=== PATIENT | male | born 1980 | race American Indian/Alaskan Native ===

== ENCOUNTER 2018-12-26 12:06 | Emergency (ER) | payer BC ==
[2018-12-26 12:14] VITALS: BP 162/78
--- NOTE | 2018-12-26 12:14 | Emergency Department Report ---
Blank Doc - Documentation Documentation: This is a 38-year-old male that presents with headache s/p injury in [place]. This initial assessment/diagnostic orders/clinical plan/treatment(s) is/are subject to change based on patient's health status, clinical progression and re- assessment by fellow clinical providers in the ED. Further treatment and workup at subsequent clinical providers discretion. Patient/guardians urged not to elope from the ED as their condition may be serious if not clinically assessed and managed. Initial orders include: 1- Patient sent to [facility] for further evaluation and treatment 2- ct head/facial bone
[2018-12-26] MEDS ORDERED: NACL 0.9% 1000 ML 1,000 ML IV ONE (12:37)
[2018-12-26] MEDS ORDERED: SOLU-Medrol IV ONE (12:37)
[2018-12-26] MEDS ORDERED: FIORICET PO ONE (12:37)
[2018-12-26] MEDS ORDERED: TORADOL IVP ONE (12:37)
[2018-12-26] MEDS ORDERED: IMITREX SUB-Q ONE (12:38)
[2018-12-26] MEDS ORDERED: REGLAN IV ONE (12:38)
[2018-12-26] MEDS ORDERED: BENADRYL IV ONE (12:39)
--- NOTE | 2018-12-26 13:28 | Cat Scan Report ---
PROCEDURE: CT HEAD/BRAIN WO CON TECHNIQUE: A noncontrast CT of the head was performed. HISTORY: headache COMPARISON: None FINDINGS: There is no acute intracranial hemorrhage. There is no brain edema, mass effect or midline shift. Ventricular size is appropriate for brain volume. There is no abnormal extra-axial fluid collections. There is no skull fracture seen. The visualized paranasal sinuses are clear. IMPRESSION: There is no acute intracranial abnormality seen. This document is electronically signed by Izabel Sorto MD., December 26 2018 01:26:31 PM ET
--- NOTE | 2018-12-26 13:53 | Emergency Department Report ---
ED General Adult HPI - General Chief complaint: Headache Stated complaint: SEVERE HEADACHE Time Seen by Provider: 12/26/18 12:11 Source: patient Mode of arrival: Ambulatory Limitations: No Limitations - History of Present Illness Initial comments: The patient presents to the emergency department with a chief complaint of a headache. The patient states that he ran into a glass door at a restaurant in [place]. This occurred this past . Patient states after hitting his head on he has been nauseated with the headache that he rates as a 6 out 10 and not being the worst headache of his life. Patient endorses snorkeling the next day and also taken a plane flight on Wednesday. -: Sudden Location: head Severity scale (0 -10): 6 Quality: other (throbbing) Consistency: constant Improves with: other (darkness) Worsens with: other (light) Associated Symptoms: denies other symptoms Treatments Prior to Arrival: none - Related Data Previous Rx's Medication Instructions Recorded Last Taken Type Butalb/Acetamin/Caff 50-325-40 1 tab PO Q6HR PRN #24 tab 12/26/18 Unknown Rx [Fioricet] Naproxen [Naprosyn] 500 mg PO BID PRN #20 tablet 12/26/18 Unknown Rx Allergies Allergy/AdvReac Type Severity Reaction Status Date / Time No Known Allergies Allergy Unverified 12/26/18 13:24 ED Review of Systems ROS: Stated complaint: SEVERE HEADACHE Other details as noted in HPI Comment: All other systems reviewed and negative Constitutional: denies: chills, fever Eyes: denies: eye pain, eye discharge, vision change ENT: denies: ear pain, throat pain Respiratory: denies: cough, shortness of breath, wheezing Cardiovascular: denies: chest pain, palpitations Endocrine: no symptoms reported Gastrointestinal: denies: abdominal pain, nausea, diarrhea Genitourinary: denies: urgency, dysuria Musculoskeletal: denies: back pain, joint swelling, arthralgia Skin: denies: rash, lesions Neurological: headache. denies: weakness, paresthesias Psychiatric: denies: anxiety, depression Hematological/Lymphatic: denies: easy bleeding, easy bruising ED Past Medical Hx - Past Medical History Previous Medical History?: Yes Additional medical history: Enlarged Septum. Anxiety - Surgical History Past Surgical History?: No - Social History Smoking Status: Never Smoker Substance Use Type: Alcohol - Medications Home Medications: Home Medications Medication Instructions Recorded Confirmed Last Taken Type Butalb/Acetamin/Caff 50-325-40 1 tab PO Q6HR PRN #24 tab 12/26/18 Unknown Rx [Fioricet] Naproxen [Naprosyn] 500 mg PO BID PRN #20 tablet 12/26/18 Unknown Rx ED Physical Exam - General Limitations: No Limitations General appearance: alert, in no apparent distress - Head Head exam: Present: atraumatic, normocephalic - Eye Eye exam: Present: normal appearance, PERRL, EOMI - ENT ENT exam: Present: mucous membranes moist - Neck Neck exam: Present: normal inspection - Respiratory Respiratory exam: Present: normal lung sounds bilaterally. Absent: respiratory distress - Cardiovascular Cardiovascular Exam: Present: regular rate, normal rhythm. Absent: systolic murmur, diastolic murmur, rubs, gallop - GI/Abdominal GI/Abdominal exam: Present: soft, normal bowel sounds. Absent: distended, tenderness - Rectal Rectal exam: Present: deferred - Extremities Exam Extremities exam: Present: normal inspection - Back Exam Back exam: Present: normal inspection - Neurological Exam Neurological exam: Present: alert, oriented X3, CN II-XII intact. Absent: motor sensory deficit - Psychiatric Psychiatric exam: Present: normal affect, normal mood - Skin Skin exam: Present: warm, dry, intact, normal color. Absent: rash ED Course Vital Signs 12/26/18 12/26/18 12:11 13:24 Temperature 97.9 F Pulse Rate 52 L Respiratory 16 16 Rate Blood Pressure 162/78 O2 Sat by Pulse 98 Oximetry ED Medical Decision Making - Radiology Data Radiology results: report reviewed - Medical Decision Making Discussed results with patient Patient has moderate improvement of headache Concussion protocol was discussed and the need to return if there is another head injury within the next 30 days Critical care attestation.: If time is entered above; I have spent that time in minutes in the direct care of this critically ill patient, excluding procedure time. ED Disposition Clinical Impression: Concussion Disposition: DC-01 TO HOME OR SELFCARE Is pt being admited?: No Does the pt Need Aspirin: No Condition: Stable Instructions: Concussion (ED) Additional Instructions: return if worse Prescriptions: Butalb/Acetamin/Caff 50-325-40 [Fioricet] 1 tab PO Q6HR PRN #24 tab PRN Reason: Headache Naproxen [Naprosyn] 500 mg PO BID PRN #20 tablet PRN Reason: pain Referrals: ALMAS PLATT MD [Staff Physician] - 3-5 Days Time of Disposition: 13:52
== END 2018-12-26 14:29 | disposition home or self-care (01) ==
LOC: ED 12:06
DX: S06.0X9A Concussion with loss of consciousness of unspecified duration, initial encounter (principal); F41.9 Anxiety disorder, unspecified; W22.8XXA Striking against or struck by other objects, initial encounter; Y93.02 Activity, running; Y92.511 Restaurant or cafe as the place of occurrence of the external cause; Y99.8 Other external cause status
CPT/HCPCS: 70450; 96372; 96374; 96375; 99283; J1200; J1885; J2765; J2930; J7030; J3030

== ENCOUNTER 2019-01-27 09:29 | Inpatient (IN) | payer BC ==
--- NOTE | 2019-01-27 09:53 | Emergency Department Report ---
ED Chest Pain HPI - General Chief Complaint: Arrhythmia/Palpitations Stated Complaint: PALPITATIONS Time Seen by Provider: 01/27/19 09:49 Source: patient, family Mode of arrival: Ambulatory Limitations: No Limitations - History of Present Illness Initial Comments: 38-year-old male with intermittent chest pain. The patient is also been having episodes of palpitations. His who is a nurse here states he is additionally made an appointment for neurology evaluation. The patient has been experiencing some variation in his heart rate from the 40s to the 120s she states. He has been under stress. She states they were in the [place] when he fell and hit his face/head. He was seen at this facility and told he had a concussion. He did not lose consciousness. He is not complaining of headache or any focal neurological change. Patient describes his chest pain as intermittent and nonexertional. It is a tightness that involves his anterior chest that does not radiate. He may have some mild shortness of breath but no pleuritic pain or cough. He denies nausea vomiting sweating or other symptoms. He is not having chest pain at this time. MD Complaint: chest pain -: Gradual, week(s) Onset: during rest Pain Location: substernal (entire anterior chest) Pain Radiation: LUE Severity: mild, moderate Quality: aching Consistency: intermittent, now resolved Improves With: nothing Worsens With: nothing re: dyspnea. denies: nausea, vomting, diaphoresis Other Symptoms: denies: cough, fever, syncope Treatments Prior to Arrival: none - Related Data Home Medications Medication Instructions Recorded Confirmed Last Taken Buspar 10 mg PO TID PRN 01/27/19 01/27/19 Unknown Allergies Allergy/AdvReac Type Severity Reaction Status Date / Time No Known Allergies Allergy Verified 01/27/19 09:31 Heart Score - HEART Score History: Moderately suspicious EKG: Significant ST-depression Age: < 45 Risk factors: 1-2 risk factors Troponin: < normal limit HEART Score: 4 - Critical Actions Critical Actions: 4-6 pts:12-16.6% risk of adverse cardiac event. Should be admitted ED Review of Systems ROS: Stated complaint: PALPITATIONS Other details as noted in HPI Constitutional: denies: chills, fever Eyes: denies: eye pain, eye discharge, vision change ENT: denies: ear pain, throat pain Respiratory: denies: cough, shortness of breath, wheezing Cardiovascular: chest pain, palpitations, other (variation in heart rate as described above) Endocrine: no symptoms reported Gastrointestinal: denies: abdominal pain, nausea, diarrhea Genitourinary: denies: urgency, dysuria Musculoskeletal: denies: back pain, joint swelling, arthralgia Skin: denies: rash, lesions Neurological: denies: headache, weakness, paresthesias Psychiatric: anxiety. denies: depression Hematological/Lymphatic: denies: easy bleeding, easy bruising ED Past Medical Hx - Past Medical History Additional medical history: Enlarged Septum. Anxiety - Family History Family history: other (grandfather with [place]) - Social History Smoking Status: Never Smoker Substance Use Type: Alcohol - Medications Home Medications: Home Medications Medication Instructions Recorded Confirmed Last Taken Type Buspar 10 mg PO TID PRN 01/27/19 01/27/19 Unknown History ED Physical Exam - General Limitations: No Limitations General appearance: alert, in no apparent distress - Head Head exam: Present: atraumatic, normocephalic - Eye Eye exam: Present: normal appearance. Absent: scleral icterus - ENT ENT exam: Present: mucous membranes moist - Neck Neck exam: Present: normal inspection - Respiratory Respiratory exam: Present: normal lung sounds bilaterally. Absent: respiratory distress - Cardiovascular Cardiovascular Exam: Present: regular rate, normal rhythm. Absent: systolic murmur, diastolic murmur, rubs, gallop - GI/Abdominal GI/Abdominal exam: Present: soft, normal bowel sounds. Absent: distended, tende rness, guarding, rebound, rigid - Rectal Rectal exam: Present: deferred - Extremities Exam Extremities exam: Present: normal inspection, normal capillary refill. Absent: pedal edema, joint swelling, calf tenderness - Back Exam Back exam: Present: normal inspection - Neurological Exam Neurological exam: Present: alert, oriented X3, CN II-XII intact. Absent: motor sensory deficit - Psychiatric Psychiatric exam: Present: normal affect, normal mood - Skin Skin exam: Present: warm, dry, intact, normal color. Absent: rash ED Course Vital Signs 01/27/19 01/27/19 01/27/19 09:40 09:41 09:45 Temperature 98.4 F Pulse Rate 68 65 58 L Respiratory 18 16 16 Rate Blood Pressure 128/71 142/87 O2 Sat by Pulse 99 100 99 Oximetry 07/07/0601/27/19 01/27/19 10:08 10:15 10:30 Temperature Pulse Rate 54 L 54 L 57 L Respiratory 12 17 17 Rate Blood Pressure 136/82 128/71 129/80 O2 Sat by Pulse 100 99 Oximetry 01/27/19 01/27/19 01/27/19 10:45 11:00 11:15 Temperature Pulse Rate 72 54 L 52 L Respiratory 21 12 15 Rate Blood Pressure 142/87 119/75 112/66 O2 Sat by Pulse 100 98 99 Oximetry 01/27/19 01/27/19 01/27/19 11:30 11:45 12:00 Temperature Pulse Rate 53 L 52 L 55 L Respiratory 15 15 9 L Rate Blood Pressure 115/70 109/69 121/79 O2 Sat by Pulse 99 99 99 Oximetry 01/27/19 01/27/19 01/27/19 12:15 13:15 13:30 Temperature Pulse Rate 58 L 50 L Respiratory 15 12 Rate Blood Pressure 121/79 121/79 118/77 O2 Sat by Pulse 99 99 97 Oximetry ED Medical Decision Making - Lab Data Result diagrams: 01/27/19 09:55 01/27/19 11:31 Laboratory Results - last 24 hr 01/27/19 01/27/19 01/27/19 09:55 09:55 09:55 WBC 7.1 RBC 5.82 H Hgb 17.2 H Hct 50.6 H MCV 87 MCH 30 MCHC 34 RDW 13.5 Lymph % (Auto) 20.7 [place] % (Auto) 7.0 Eos % (Auto) 1.7 Baso % (Auto) 0.7 Lymph # 1.5 [place] # 0.5 Eos # 0.1 Baso # 0.0 Seg Neutrophils % 69.9 Seg Neutrophils # 5.0 PT 12.9 INR 1.00 APTT < 20.0 L D-Dimer 430.74 H Troponin T < 0.010 - EKG Data -: EKG Interpreted by Me EKG shows normal: sinus rhythm, axis, intervals, QRS complexes Rate: normal - EKG Data Interpretation: other (mild ST depression and T-wave inversion in the inferior leads, consider ischemia) - Radiology Data Radiology results: report reviewed (VQ scan low probability) Critical care attestation.: If time is entered above; I have spent that time in minutes in the direct care of this critically ill patient, excluding procedure time. ED Disposition Clinical Impression: Chest pain Qualifiers: Chest pain type: unspecified Qualified Code(s): R07.9 - Chest pain, unspecified Disposition: DC-09 OP ADMIT IP TO THIS HOSP Is pt being admited?: Yes Does the pt Need Aspirin: Yes Condition: Stable Instructions: Chest Pain (ED) Referrals: INOCENCIA VEGA MD [Primary Care Provider] - 3-5 Days Time of Disposition: 15:55
[2019-01-27] MEDS ORDERED: ASPIRIN PO ONE (09:54)
[2019-01-27] MEDS ORDERED: ATIVAN PO ONE (10:01)
[2019-01-27 10:12] LABS: Basophils % (Auto) 0.7 % (0.0-1.8); Eosinophils # (Auto) 0.1 K/mm3 (0.0-0.4); Eosinophils % (Auto) 1.7 % (0.0-4.3); Hematocrit 50.6 % (35.5-45.6); Hemoglobin 17.2 gm/dl (11.8-15.2); Lymphocytes # (Auto) 1.5 K/mm3 (1.2-5.4); Lymphocytes % (Auto) 20.7 % (13.4-35.0); Mean Corpuscular HGB Conc 34 % (32-34); Mean Corpuscular Volume 87 fl (84-94); Monocytes # (Auto) 0.5 K/mm3 (0.0-0.8); Red Blood Count 5.82 M/mm3 (3.65-5.03); Red Cell Distribution Width 13.5 % (13.2-15.2)
--- NOTE | 2019-01-27 10:30 | XRay Report ---
CHEST 1 VIEW INDICATION: Intermittent chest pain, palpitations. COMPARISON: None FINDINGS: Support devices: None. Heart: Within normal limits. Lungs/Pleura: No acute air space or interstitial disease. Additional findings: None. IMPRESSION: No acute findings. Signer Name: Néstor Alberto Jr, MD Signed: 01/27/2019 10:25 AM Workstation Name: [id number]
[2019-01-27 11:02] LABS: Partial Thromboplastin Time < 20.0 Sec. (24.2-36.6)
[2019-01-27 12:01] LABS: Creatine Kinase MB 1.1 ng/mL (0.0-4.0)
[2019-01-27 12:02] LABS: Albumin 4.4 g/dL (3.9-5); BUN/Creatinine Ratio 11; Blood Urea Nitrogen 12 mg/dL (9-20); Calcium 9.4 mg/dL (8.4-10.2); Hemolysis Index 506
[2019-01-27 12:04] LABS: Platelet Count 146 K/mm3 (140-440)
[2019-01-27 12:25] LABS: Bilirubin,Direct TNR mg/dL (0-0.2)
[2019-01-27 12:26] LABS: Alanine Aminotransferase TNR units/L (7-56)
--- NOTE | 2019-01-27 12:39 | History and Physical Report ---
History of Present Illness Chief complaint: My chest hurt, I keep getting dizzy and having headache, and i cant remember things History of present illness: 38 YO Male with Anxiety, Enlarged Intraventricular septum presents to ED for evaluation. Pt states that he has experienced episodic pain in his chest over the past 1 week, with worsening symptoms over the past 3 days. Pt states that pain is 3-5/10, substernal, aching, intermittent, radiating to Left Upper Extremity, associated with shortness of breath, not worsened with exertion, not relieved with rest. Pt acknowledges decreased exercise tolerance, dypsnea with exertion, and occasional dypsnea at rest. Pt also reports head trauma 1 month ago which resulted in a mild concussion. Pt also reports that since that time he has experienced episodes of confusion, increased sleep time, visual scotoma with sneezing. Pt reports that patient has change is speech eddie. Pt transported to [facility] via private vehicle. Pt seen and evaluated in ED and found to have Angina as well as symptoms consistent with diastolic CHF, as well as Post Concussive Syndrome. Pt admitted to telemetry. Cardiology consulted in ED. Neurology consulted in ED. Pt denies fever, chills, insect bites, BRBPR, Productive cough, skin rash, leg selling, calf pain, or recent ill contacts. No prior admission for review. All listed medication reconciled at time of admission. Past History Past Medical History: other (Anxiety, Enlarged cardiac septum) Past Surgical History: No surgical history, Other (reviewed) Social history: , lives with family. denies: smoking, alcohol abuse, prescription drug abuse Family history: CAD Medications and Allergies Allergies Allergy/AdvReac Type Severity Reaction Status Date / Time No Known Allergies Allergy Verified 01/27/19 09:31 Home Medications Medication Instructions Recorded Confirmed Last Taken Type Buspar 10 mg PO TID PRN 01/27/19 01/27/19 Unknown History Review of Systems Constitutional: no weight loss, no weight gain, no fever, no chills Ears, nose, mouth and throat: no ear pain, no ear discharge, no tinnitis, no decreased hearing, no nose pain, no nasal congestion Cardiovascular: chest pain, lightheadedness, dyspnea on exertion, decreased exercise tolerance, no orthopnea, no palpitations, no edema Respiratory: no cough, no cough with sputum, no excessive sputum, no hemoptysis Gastrointestinal: no nausea, no vomiting, no constipation, no change in bowel habits Genitourinary Male: no hematuria, no flank pain, no discharge, no urinary frequency, no urinary hesitancy Rectal: no pain, no incontinence, no bleeding Musculoskeletal: no neck stiffness, no neck pain, no shooting arm pain, no arm numbness/tingling, no shooting leg pain, no leg numbness/tingling Integumentary: no rash, no pruritis, no redness, no sores, no wounds Neurological: no head injury, no transient paralysis, no paralysis, no weakness, no parathesias, no numbness, no tingling, no seizures Psychiatric: no memory loss, no change in sleep habits, no sleep disturbances, no insomnia, no hypersomnia, no change in appetite, no change in libido, no suicidal ideation Endocrine: no cold intolerance, no heat intolerance, no polyphagia, no excessive thirst, no polydipsia, no polyuria, no nocturia Hematologic/Lymphatic: no easy bruising, no easy bleeding, no lymphadenopathy Allergic/Immunologic: no urticaria, no allergic rhinitis, no wheezing, no persistent infections, no anaphylaxis, no angioedema Exam - Constitutional Vitals: Temp Pulse Resp BP Pulse Ox 98.4 F 68 18 128/71 99 01/27/19 09:40 01/27/19 09:40 01/27/19 09:40 01/27/19 09:40 01/27/19 09:40 General appearance: Present: mild distress - EENT Eyes: Present: PERRL ENT: hearing intact, clear oral mucosa - Neck Neck: Present: supple, normal ROM - Respiratory Respiratory effort: normal Respiratory: bilateral: CTA - Cardiovascular Heart Sounds: Present: S1 & S2. Absent: rub, click - Extremities Extremities: pulses symmetrical, No edema Peripheral Pulses: within normal limits - Abdominal General gastrointestinal: Present: soft, non-tender, non-distended, normal bowel sounds Male genitourinary: Present: normal - Integumentary Integumentary: Present: clear, warm, dry - Musculoskeletal Musculoskeletal: gait normal, strength equal bilaterally - Psychiatric Psychiatric: appropriate mood/affect, intact judgment & insight - Neurologic Neurologic: CNII-XII intact, moves all extremities Results - Labs CBC & Chem 7: 01/27/19 09:55 01/27/19 11:31 Labs: Abnormal lab results 01/27/19 01/27/19 01/27/19 Range/Units 09:55 09:55 11:31 RBC 5.82 H (3.65-5.03) M/mm3 Hgb 17.2 H (11.8-15.2) gm/dl Hct 50.6 H (35.5-45.6) % APTT < 20.0 L (24.2-36.6) Sec. D-Dimer 430.74 H (0-234) ng/mlDDU Sodium 136 L (137-145) mmol/L Assessment and Plan - Patient Problems (1) Angina at rest Current Visit: Yes Status: Acute Plan to address problem: Serial cardiac enzymes, ekg, Telemetry, morphine, supplemental oxygen, nitro, aspirin, cardiology consulted in ED. (2) Diastolic CHF Current Visit: Yes Status: Acute Qualifiers: Heart failure chronicity: acute Qualified Code(s): I50.31 - Acute diastolic (congestive) heart failure Plan to address problem: Admit to telemetry, Echo, strict I/O, daily weight, monitor uop q shift, cardiology consulted in ED, thyroid panel, magnesium level. (3) Post concussive syndrome Current Visit: Yes Status: Acute Plan to address problem: MRI/MRA Brain, EEG, Neurology consulted in ED, Neuro checks, seizure precautions. (4) DVT prophylaxis Current Visit: Yes Status: Acute Plan to address problem: SCD to BLE while in bed, supportive care. prophylactic lovenox
[2019-01-27] MEDS ORDERED: PROVENTIL IH PRN (12:40)
[2019-01-27] MEDS ORDERED: TYLENOL PO PRN (12:40)
[2019-01-27] MEDS ORDERED: ZOFRAN IV PRN (12:40)
[2019-01-27] MEDS ORDERED: SODIUM CHLORIDE FLUSH SYRINGE 10 ML IV PRN (12:40)
--- NOTE | 2019-01-27 13:09 | Nuclear Medicine Report ---
NUCLEAR MEDICINE VENTILATION/PERFUSION LUNG SCAN INDICATION: Chest pain. Elevated d-dimer. TECHNIQUE: 25.1 mCi of Xe-133 were given by inhalation. 4.64 mCi of Tc-99m MAA were given by IV. COMPARISON: Chest radiograph dated 01/27/2019. FINDINGS: VENTILATION: No significant ventilation defects. PERFUSION: No significant perfusion defects. ADDITIONAL FINDINGS: None. IMPRESSION: Low probability for pulmonary embolism. Signer Name: Keo Gonzalez MD Signed: 01/27/2019 1:04 PM Workstation Name: [id number]
[2019-01-27] MEDS ORDERED: NON-FORMULARY (Buspar 10 MG) PO PRN (13:11)
[2019-01-27 13:45] LABS: Bilirubin,Urine NEG (Negative); Blood,Urine NEG (Negative); Color,Urine Colorless (Yellow); Protein,Urine <15 mg/dL mg/dL (Negative); RBC,Urine < 1.0 /HPF (0.0-6.0); Urobilinogen,Urine < 2.0 mg/dL (<2.0); WBC,Urine < 1.0 /HPF (0.0-6.0)
[2019-01-27 14:07] LABS: Free T4 (Free Thyroxine) 1.01 ng/dL (0.76-1.46)
--- NOTE | 2019-01-27 15:04 | Magnetic Resonance Report ---
MRI BRAIN WITHOUT CONTRAST INDICATION / CLINICAL INFORMATION: confusion/headache. TECHNIQUE: Multiplanar, multisequence MR images of the brain were obtained. COMPARISON: None available. FINDINGS: BRAIN / INTRACRANIAL CONTENTS: There is a small 4-5 mm hyperintense focus involving the anterior left external capsule. This finding is nonspecific and likely incidental. The brain otherwise demonstrate appropriate signal characteristics. The diffusion imaging reveals no evidence of acute infarction. The ventricular system is within normal limits in size and configuration. No extra-axial fluid collec tions or significant mass effect is identified. No intracranial enhancing lesions are identified. CRANIOCERVICAL JUNCTION: No significant abnormality. VASCULAR FLOW-VOIDS: No significant abnormality. ORBITS: No significant abnormality. SINUSES / MASTOIDS: There is mild mucosal thickening within the ethmoid, frontal and left maxillary s inuses. The mastoid air cells are clear. ADDITIONAL FINDINGS: None. IMPRESSION: 1. There is a solitary 4-5 mm hyperintense focus involving the left external capsule which is nonspec ific though likely incidental as described. The MRI brain is otherwise unremarkable without evidence of recent infarction. 2. There is mild sinus inflammatory disease as described. Signer Name: Darrel Gann MD Signed: 01/27/2019 2:59 PM Workstation Name: [id number]
--- NOTE | 2019-01-27 15:14 | Magnetic Resonance Report ---
MRA HEAD 01/27/2019 INDICATION / CLINICAL INFORMATION: confusion/headache. TECHNIQUE: Routine MRA of the head is performed. 3-D/MIP reformats postprocessed. COMPARISON: None available. FINDINGS: MRA HEAD: Intracranial internal carotid arteries: No significant abnormality. Anterior cerebral arteries: No significant abnormality. Middle cerebral arteries: No significant abnormality. Intracranial vertebral arteries: No significant abnormality. Basilar artery: No significant abnormality. Posterior cerebral arteries: No significant abnormality. IMPRESSION: Negative exam Signer Name: Benja Maynard MD Signed: 01/27/2019 3:10 PM Workstation Name: [id number]
--- NOTE | 2019-01-27 16:27 | Consultation ---
History of Present Illness Consult date: 01/27/19 Reason for Consult: Imbalance, history of concussion Chief complaint: confusion, history of concussion, chest pain History of present illness: Patient is a 38-year-old man with a history of anxiety, large intraventricular septum. He was admitted for a 3 day history of chest pain, for which she is undergoing workup per primary team. Patient reports that approximately 5 weeks ago, he was on vacation in [place], and at that time he had a concussion that involved him walking into a glass door. He did not lose consciousness at the time, and did not have a fall. The next morning, he notes that he woke up not feeling well, and was experiencing a mild headache, as well as what he describes as brain fog, and that he had mild confusion and blurry vision. He also felt fatigued at the time. Since that concussion, over the past 5 weeks, patient has stated that he has had symptoms of mild confusion, fatigue, blurry vision, mild generalized headaches, and fatigue. For the first 5-7 days after the trauma, he notes that he was unable to get back to work due to significant fatigue. He is not in any excessive physical exertion since the past 5 weeks, however he has noted that when he does exert himself or try to work to some extent, he feels that his symptoms of fatigue, blurry vision, and headache worsen. Patient denies any loss of consciousness, convulsions, weakness, or numbness. He presented to the ER approximately 2 weeks ago for headaches, and was told that he has postconcussive syndrome. CT brain at the time was unremarkable. Headaches are described as dull, mostly occipital, with some radiation anteriorly towards the temporal parietal area, at worst they are 8 out of 10, but are usually run 4-10, improved with Fioricet, associated with photophobia and phonophobia. Past History Past Medical History: other (Anxiety, Enlarged cardiac septum) Past Surgical History: No surgical history, Other (reviewed) Social history: , lives with family. denies: smoking, alcohol abuse, prescription drug abuse Family history: CAD Medications and Allergies Allergies Allergy/AdvReac Type Severity Reaction Status Date / Time No Known Allergies Allergy Verified 01/27/19 09:31 Home Medications Medication Instructions Recorded Confirmed Last Taken Type Buspar 10 mg PO TID PRN 01/27/19 01/27/19 Unknown History Active Meds: Active Medications Acetaminophen (Tylenol) 650 mg PO Q4H PRN PRN Reason: Pain MILD(1-3)/Fever >100.5/WOOD Albuterol (Proventil) 2.5 mg IH Q4HRT PRN PRN Reason: Shortness Of Breath Buspirone HCl (Buspar) 10 mg PO TID PRN PRN Reason: Anxiety Enoxaparin Sodium (Lovenox) 40 mg SUB-Q QDAY@2200 SHAMAR Sodium Chloride (Nacl 0.45% 1000 Ml) 1,000 mls @ 75 mls/hr IV DIRECT SHAMAR Ondansetron HCl (Zofran) 4 mg IV Q8H PRN PRN Reason: Nausea And Vomiting Sodium Chloride (Sodium Chloride Flush Syringe 10 Ml) 10 ml IV BID SHAMAR Sodium Chloride (Sodium Chloride Flush Syringe 10 Ml) 10 ml IV PRN PRN PRN Reason: LINE FLUSH Review of Systems Constitutional: fatigue Eyes: bilateral: blurred vision, photophobia Cardiovascular: chest pain, palpitations Neurological: lack of coordination, headaches Psychiatric: anxiety Physical Examination - Vital Signs Vital Signs: Vital Signs Temp Pulse Resp BP Pulse Ox 98.4 F 68 18 128/71 99 01/27/19 09:40 01/27/19 09:40 01/27/19 09:40 01/27/19 09:40 01/27/19 09:40 - Constitutional General appearance: comfortable - EENT EENT: Present: ATNC, PERRL, mucous membranes moist, vision intact - Respiratory Respiratory: Present: lungs clear, normal breath sounds - Cardiovascular Cardiovascular: Present: regular rate, normal S1, normal S2 Extremities: Present: no peripheral edema bilatateraly, no clubbing, cyanosis - Gastrointestinal Gastrointestinal: Present: normoactive bowel sounds, soft, non-tender - Integumentary Integumentary: Present: normal - Neurologic Cranial nerve examination: PERRL, EOMI, VFF, V1/V2/V3 grossly intact, face symmetric, tongue midline, other (Noted to have bilateral tenderness over area of occipital nerve) Speech examination: intact Sensorimotor examination: intact Detailed motor examination: full strength in all samina Motor examination - right side: 5/5: biceps, triceps, manager grant, hip flexors, dorsiflexion, plantarflexion Motor examination - left side: 5/5: biceps, triceps, manager grant, hip flexors, dorsiflexion, plantarflexion Detailed sensory examination: intact, light touch Reflex and gait examination: normal gait Cerebellar examination: other (b/l intact to FTN and HTS) - Musculoskeletal Musculoskeletal: Present: no fluid collection, no pain, normal range of motion - Psychiatric Psychiatric: Present: mood/affect appropriate Results - Laboratory Findings CBC and BMP: 01/27/19 09:55 01/27/19 11:31 Abnormal Lab Findings: Abnormal Labs 01/27/19 01/27/19 01/27/19 09:55 09:55 11:31 RBC 5.82 H Hgb 17.2 H Hct 50.6 H APTT < 20.0 L D-Dimer 430.74 H Sodium 136 L Assessment and Plan Patient is a 38-year-old man with a history of anxiety, large intraventricular septum. He was admitted for a 3 day history of chest pain, for which she is undergoing workup per primary team. Patient reports that approximately 5 weeks ago, he was on vacation in [place], and at that time he had a concussion that involved him walking into a glass door. According to patient's clinical findings, it is likely that he has postconcussive syndrome. To support this, the patient had onset of symptoms after the concussion, involving blurry vision, headaches, difficulty concentrating, fatigue, and mild imbalance. CT brain and MRI brain were both reviewed, and were noted to be unremarkable. Patient was also noted to have bilateral tenderness in the occipital region, which indicates likely occipital neuralgia which is the etiology of the headaches, and this may also be related to concussion. 1. Post-concussion syndrome: Likely etiology of patient's symptoms of difficulty concentrating, blurry vision, mild imbalance, and headaches. MRI brain and CT head were unremarkable. Recommended for patient to continue to rest, with gradual increase in activity over time as tolerated. Discussed that rapidly increasing activity or suddenly going back to normal activity may slow process of recovery from concussion. Patient and felt that it would be possible for patient to continue to rest for the next 3-4 weeks, and have gradual increase in activity. He is recommended to not have strain on the eyes involving watching TV or use of cell phone. Patient recommended to follow up with concussion center in the area for monitoring of symptoms. 2. Occipital neuralgia: Noted to have significant tenderness in b/l occipital regions, which may be etiology of headaches which are notably more in the occipital regions. Recommended for patient to follow-up in headache clinic, as he may benefit from an occipital nerve block. 3. Chest pain: Further workup and management per primary team. Discussed plan of care with patient, , and primary team. Thank you for allowing me to take part in the care of this patient. Will sign off. Please call with any questions. If patient is to be followed over the weekend, separate neurologist international nurse over the weekend will need to be consulted. Luis Miguel Ribeiro MD Neurology - Patient Problems (1) Occipital neuralgia Current Visit: Yes Status: Acute (2) Post concussive syndrome Current Visit: Yes Status: Acute
[2019-01-27] MEDS: LOVENOX SUB-Q SCH (22:08)
[2019-01-27] MEDS: NACL 0.45% 1000 ML 1,000 ML IV SCH (22:08)
[2019-01-27] MEDS: SODIUM CHLORIDE FLUSH SYRINGE 10 ML IV SCH (22:16)
[2019-01-28 06:36] LABS: BUN/Creatinine Ratio 9; Blood Urea Nitrogen 10 mg/dL (9-20); Calcium 8.8 mg/dL (8.4-10.2); Hemolysis Index 21
[2019-01-28] MEDS: NACL 0.45% 1000 ML 1,000 ML IV SCH ×2 (09:43→22:50)
[2019-01-28] MEDS: SODIUM CHLORIDE FLUSH SYRINGE 10 ML IV SCH ×2 (09:43→21:14)
[2019-01-28] MEDS: BUSPAR PO PRN ×2 (10:35→15:48)
--- NOTE | 2019-01-28 15:13 | Progress Note ---
Assessment and Plan Assessment and plan: 38-year-old man with history of anxiety disorder and enlarged cardiac septum who presents to the hospital with chest pain, feelings of dizziness and headache. He stated that these headaches and dizziness and issues remembering things occurred after trauma. Imaging reviewed, which included V/Q scan, MRI brain, MRA head, chest x-ray which were all negative Postconcussive syndrome Neurology input appreciated, should follow-up in headache clinic if does not improve Chest pain Management per cardiology DVT prophylaxis; Lovenox History Interval history: Patient continues to complain of headache and dizziness, and feels cloudy in his brain Review of systems Constitutional: No fevers, no malaise, no joint pains CVS: No chest pain, no orthopnea, no dyspnea on exertion, no pedal edema GI: No abdominal pain, no diarrhea, no vomiting, no constipation Respiratory: no wheezing, no coughing Hospitalist Physical - Physical exam Narrative exam: General.: Appears well, no distress, nontoxic HEENT: Moist mucous membranes, extraocular muscles intact, no lymphadenopathy Neck: supple Cardiac: S1-S2 heard Lungs: clear to auscultation bilaterally Abdomen: soft , nontender, nondistended, bowel sounds positive Extremities: no edema clubbing or cyanosis Skin: no rash or lesions Neurologic: no gross focal deficits Psych: calm, and cooperative - Constitutional Vitals: Temp Pulse Resp BP Pulse Ox 97.7 F 62 18 115/63 97 01/28/19 05:16 01/28/19 13:49 01/28/19 05:15 01/28/19 05:15 01/28/19 05:15 General appearance: Present: mild distress Results - Labs CBC & Chem 7: 01/27/19 09:55 01/28/19 05:05 Labs: Laboratory Last Values WBC 7.1 K/mm3 (4.5-11.0) 01/27/19 09:55 RBC 5.82 M/mm3 (3.65-5.03) H 01/27/19 09:55 Hgb 17.2 gm/dl (11.8-15.2) H 01/27/19 09:55 Hct 50.6 % (35.5-45.6) H 01/27/19 09:55 MCV 87 fl (84-94) 01/27/19 09:55 MCH 30 pg (28-32) 01/27/19 09:55 MCHC 34 % (32-34) 01/27/19 09:55 RDW 13.5 % (13.2-15.2) 01/27/19 09:55 Plt Count 146 K/mm3 (140-440) 01/27/19 09:55 Lymph % (Auto) 20.7 % (13.4-35.0) 01/27/19 09:55 [place] % (Auto) 7.0 % (0.0-7.3) 01/27/19 09:55 Eos % (Auto) 1.7 % (0.0-4.3) 01/27/19 09:55 Baso % (Auto) 0.7 % (0.0-1.8) 01/27/19 09:55 Lymph # 1.5 K/mm3 (1.2-5.4) 01/27/19 09:55 [place] # 0.5 K/mm3 (0.0-0.8) 01/27/19 09:55 Eos # 0.1 K/mm3 (0.0-0.4) 01/27/19 09:55 Baso # 0.0 K/mm3 (0.0-0.1) 01/27/19 09:55 Seg Neutrophils % 69.9 % (40.0-70.0) 01/27/19 09:55 Seg Neutrophils # 5.0 K/mm3 (1.8-7.7) 01/27/19 09:55 PT 12.9 Sec. (12.2-14.9) 01/27/19 09:55 INR 1.00 (0.87-1.13) 01/27/19 09:55 APTT < 20.0 Sec. (24.2-36.6) L 01/27/19 09:55 430.74 ng/mlDDU (0-234) H 01/27/19 09:55 Sodium 138 mmol/L (137-145) 01/28/19 05:05 Potassium 3.9 mmol/L (3.6-5.0) 01/28/19 05:05 Chloride 104.8 mmol/L (98-107) 01/28/19 05:05 Carbon Dioxide 26 mmol/L (22-30) 01/28/19 05:05 11 mmol/L 01/28/19 05:05 BUN 10 mg/dL (9-20) 01/28/19 05:05 1.1 mg/dL (0.8-1.5) 01/28/19 05:05 Estimated GFR > 60 ml/min 01/28/19 05:05 9 % 01/28/19 05:05 Glucose 85 mg/dL (75-100) 01/28/19 05:05 Calcium 8.8 mg/dL (8.4-10.2) 01/28/19 05:05 Magnesium 2.10 mg/dL (1.7-2.3) 01/27/19 13:17 0.20 mg/dL (0.1-1.2) 01/27/19 11:31 TNR 01/27/19 11:31 TNR 01/27/19 11:31 AST TNR 01/27/19 11:31 ALT TNR 01/27/19 11:31 TNR 01/27/19 11:31 TNR 01/27/19 11:31 CK-MB (CK-2) 1.1 ng/mL (0.0-4.0) 01/27/19 11:31 CK-MB (CK-2) Rel Index TNR 01/27/19 11:31 < 0.010 ng/mL (0.00-0.029) 01/27/19 13:17 NT-Pro-B Natriuret Pep TNR 01/27/19 11:31 7.9 g/dL (6.3-8.2) 01/27/19 11:31 4.4 g/dL (3.9-5) 01/27/19 11:31 1.3 % 01/27/19 11:31 TSH 2.020 mlU/mL (0.270-4.200) 01/27/19 13:17 Free T4 1.01 ng/dL (0.76-1.46) 01/27/19 13:17 Colorless (Yellow) 01/27/19 11:25 Clear (Clear) 01/27/19 11:25 7.0 (5.0-7.0) 01/27/19 11:25 Ur Specific [place] 1.003 (1.003-1.030) 01/27/19 11:25 <15 mg/dl mg/dL (Negative) 01/27/19 11:25 Neg mg/dL (Negative) 01/27/19 11:25 Neg mg/dL (Negative) 01/27/19 11:25 Neg (Negative) 01/27/19 11:25 Neg (Negative) 01/27/19 11:25 Neg (Negative) 01/27/19 11:25 < 2.0 mg/dL (<2.0) 01/27/19 11:25 Ur Leukocyte Esterase Neg (Negative) 01/27/19 11:25 < 1.0 /HPF (0.0-6.0) 01/27/19 11:25 < 1.0 /HPF (0.0-6.0) 01/27/19 11:25 Active Medications - Current Medications Current Medications: Generic Name Dose Route Start Last Admin Trade Name Freq PRN Reason Stop Dose Admin Acetaminophen 650 mg 01/27/19 12:40 Tylenol PO Q4H PRN Pain MILD(1-3)/Fever >100.5/WOOD Albuterol 2.5 mg 01/27/19 12:40 Proventil IH Q4HRT PRN Shortness Of Breath Buspirone HCl 10 mg 01/27/19 13:13 01/28/19 10:35 Buspar PO 10 mg TID PRN Administration Anxiety Enoxaparin Sodium 40 mg 01/27/19 22:00 01/27/19 22:08 Lovenox SUB-Q 40 mg QDAY@2200 SHAMAR Administration Sodium Chloride 1,000 mls @ 75 mls/hr 01/27/19 13:00 01/28/19 09:43 Nacl 0.45% 1000 Ml IV 75 mls/hr DIRECT SHAMAR Administration Ondansetron HCl 4 mg 01/27/19 12:40 Zofran IV Q8H PRN Nausea And Vomiting Sodium Chloride 10 ml 01/27/19 22:00 01/28/19 09:43 Sodium Chloride Flush Syringe 10 Ml IV 10 ml BID SHAMAR Administration Sodium Chloride 10 ml 01/27/19 12:40 Sodium Chloride Flush Syringe 10 Ml IV PRN PRN LINE FLUSH
[2019-01-28] MEDS: ATIVAN PO PRN (18:29)
[2019-01-28] MEDS: LOVENOX SUB-Q SCH (21:12)
[2019-01-29] MEDS: ATIVAN PO PRN ×2 (10:38→22:33)
[2019-01-29] MEDS: SODIUM CHLORIDE FLUSH SYRINGE 10 ML IV SCH ×2 (10:38→22:12)
--- NOTE | 2019-01-29 11:32 | Consultation ---
History of Present Illness Consult date: 01/29/19 Consult reason: chest pain History of present illness: 38 YO man with h/o cardiac inter-ventricular septal hypertrophy who presented to ED with headaches, confusion, and chest pain. He reports he recently suffered a concussion while he was in [place] and has been evaluated by Neurology. He has been diagnosed with post concussive syndrome. He describes his chest pain as intermittent pain which is dull at times and sharp at others. It is mostly in his left chest but also moves to his right chest at times. He has not noticed any radiation to his jaw or arms. He has not noticed any significant associated dyspnea, nausea or diaphoresis. 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 He underwent cardiac evaluation and was told that he had a "thick septum between his ventricles." He was advised to avoid playing competetive basketball but does not recall being formally diagnosed with hypertrophic cardiomyopathy or being placed on any medications. He has not had any episodes of syncope or pre-syncope. He has no family history of sudden . ECG on presentation reveals Sinus bradycardia at 54 bpm with inferior T wave inversions. Past History Past Medical History: other (Anxiety, Enlarged cardiac septum) Past Surgical History: No surgical history, Other (reviewed) Social history: , lives with family. denies: smoking, alcohol abuse, prescription drug abuse Family history: CAD Medications and Allergies Allergies Allergy/AdvReac Type Severity Reaction Status Date / Time No Known Allergies Allergy Verified 01/27/19 09:31 Home Medications Medication Instructions Recorded Confirmed Last Taken Type Buspar 10 mg PO TID PRN 01/27/19 01/27/19 Unknown History Active Meds: Active Medications Acetaminophen (Tylenol) 650 mg PO Q4H PRN PRN Reason: Pain MILD(1-3)/Fever >100.5/WOOD Albuterol (Proventil) 2.5 mg IH Q4HRT PRN PRN Reason: Shortness Of Breath Buspirone HCl (Buspar) 10 mg PO TID PRN PRN Reason: Anxiety Last Admin: 01/28/19 15:48 Dose: 10 mg Documented by: Enoxaparin Sodium (Lovenox) 40 mg SUB-Q QDAY@2200 SHAMAR Last Admin: 01/28/19 21:12 Dose: 40 mg Documented by: Sodium Chloride (Nacl 0.45% 1000 Ml) 1,000 mls @ 75 mls/hr IV DIRECT [facility] Last Admin: 01/28/19 22:50 Dose: 75 mls/hr Documented by: Lorazepam (Ativan) 0.5 mg PO Q4H PRN PRN Reason: Agitation Last Admin: 01/29/19 10:38 Dose: 0.5 mg Documented by: Ondansetron HCl (Zofran) 4 mg IV Q8H PRN PRN Reason: Nausea And Vomiting Sodium Chloride (Sodium Chloride Flush Syringe 10 Ml) 10 ml IV BID [facility] Last Admin: 01/29/19 10:38 Dose: 10 ml Documented by: Sodium Chloride (Sodium Chloride Flush Syringe 10 Ml) 10 ml IV PRN PRN PRN Reason: LINE FLUSH Review of Systems All systems: negative (per hpi) Physical Examination Vital Signs Temp Pulse Resp BP Pulse Ox 98.4 F 68 18 128/71 99 01/27/19 09:40 01/27/19 09:40 01/27/19 09:40 01/27/19 09:40 01/27/19 09:40 General appearance: no acute distress Cardiac: Positive: Reg Rate and Rhythm. Negative: Audible Murmur Lungs: Positive: clear to auscultation Abdomen: Positive: Soft, Active Bowel Sounds Extremities: Absent: edema Results 01/27/19 09:55 01/28/19 05:05 Assessment and Plan Chest pain: Atypical but patient does have abnormal ECG findings which could be due to myocardial ischemia Post concussive syndrome h/o cardiac inter-ventricular septal hypertrophy Recommend: Stress MPI tomorrow to assess BP response to exercise and evaluate for inducible myocardial ischemia Will f/u on echocardiogram Patient will likely benefit from outpatient cardiac MRI to further evaluate possibility of hypertrophic cardiomyopathy.
--- NOTE | 2019-01-29 13:49 | Progress Note ---
Assessment and Plan Assessment and plan: 38-year-old man with history of anxiety disorder and enlarged cardiac septum who presents to the hospital with chest pain, feelings of dizziness and headache. He stated that these headaches and dizziness and issues remembering things occurred after trauma. Imaging reviewed, which included V/Q scan, MRI brain, MRA head, chest x-ray which were all negative Postconcussive syndrome Neurology input appreciated, should follow-up in headache clinic if does not improve Anxiety/ PTSD ativan prn Chest pain Management per cardiology for stress test in am DVT prophylaxis; Lovenox History Interval history: Patient continues to complain of headache and dizziness, and feels cloudy in his brain also feels anxious and restless Review of systems Constitutional: No fevers, no malaise, no joint pains CVS: No chest pain, no orthopnea, no dyspnea on exertion, no pedal edema GI: No abdominal pain, no diarrhea, no vomiting, no constipation Respiratory: no wheezing, no coughing Hospitalist Physical - Physical exam Narrative exam: General.: Appears well, no distress, nontoxic HEENT: Moist mucous membranes, extraocular muscles intact, no lymphadenopathy Neck: supple Cardiac: S1-S2 heard Lungs: clear to auscultation bilaterally Abdomen: soft , nontender, nondistended, bowel sounds positive Extremities: no edema clubbing or cyanosis Skin: no rash or lesions Neurologic: no gross focal deficits Psych: calm, and cooperative - Constitutional Vitals: Temp Pulse Resp BP Pulse Ox 98.4 F 56 L 18 119/74 97 01/29/19 08:17 01/29/19 08:17 01/29/19 08:17 01/29/19 08:17 01/29/19 08:17 General appearance: Present: no acute distress Results - Labs CBC & Chem 7: 01/27/19 09:55 01/28/19 05:05 Labs: Laboratory Last Values WBC 7.1 K/mm3 (4.5-11.0) 01/27/19 09:55 RBC 5.82 M/mm3 (3.65-5.03) H 01/27/19 09:55 Hgb 17.2 gm/dl (11.8-15.2) H 01/27/19 09:55 Hct 50.6 % (35.5-45.6) H 01/27/19 09:55 MCV 87 fl (84-94) 01/27/19 09:55 MCH 30 pg (28-32) 01/27/19 09:55 MCHC 34 % (32-34) 01/27/19 09:55 RDW 13.5 % (13.2-15.2) 01/27/19 09:55 Plt Count 146 K/mm3 (140-440) 01/27/19 09:55 Lymph % (Auto) 20.7 % (13.4-35.0) 01/27/19 09:55 [place] % (Auto) 7.0 % (0.0-7.3) 01/27/19 09:55 Eos % (Auto) 1.7 % (0.0-4.3) 01/27/19 09:55 Baso % (Auto) 0.7 % (0.0-1.8) 01/27/19 09:55 Lymph # 1.5 K/mm3 (1.2-5.4) 01/27/19 09:55 [place] # 0.5 K/mm3 (0.0-0.8) 01/27/19 09:55 Eos # 0.1 K/mm3 (0.0-0.4) 01/27/19 09:55 Baso # 0.0 K/mm3 (0.0-0.1) 01/27/19 09:55 Seg Neutrophils % 69.9 % (40.0-70.0) 01/27/19 09:55 Seg Neutrophils # 5.0 K/mm3 (1.8-7.7) 01/27/19 09:55 PT 12.9 Sec. (12.2-14.9) 01/27/19 09:55 INR 1.00 (0.87-1.13) 01/27/19 09:55 APTT < 20.0 Sec. (24.2-36.6) L 01/27/19 09:55 430.74 ng/mlDDU (0-234) H 01/27/19 09:55 Sodium 138 mmol/L (137-145) 01/28/19 05:05 Potassium 3.9 mmol/L (3.6-5.0) 01/28/19 05:05 Chloride 104.8 mmol/L (98-107) 01/28/19 05:05 Carbon Dioxide 26 mmol/L (22-30) 01/28/19 05:05 11 mmol/L 01/28/19 05:05 BUN 10 mg/dL (9-20) 01/28/19 05:05 1.1 mg/dL (0.8-1.5) 01/28/19 05:05 Estimated GFR > 60 ml/min 01/28/19 05:05 9 % 01/28/19 05:05 Glucose 85 mg/dL (75-100) 01/28/19 05:05 Calcium 8.8 mg/dL (8.4-10.2) 01/28/19 05:05 Magnesium 2.10 mg/dL (1.7-2.3) 01/27/19 13:17 0.20 mg/dL (0.1-1.2) 01/27/19 11:31 TNR 01/27/19 11:31 TNR 01/27/19 11:31 AST TNR 01/27/19 11:31 ALT TNR 01/27/19 11:31 TNR 01/27/19 11:31 TNR 01/27/19 11:31 CK-MB (CK-2) 1.1 ng/mL (0.0-4.0) 01/27/19 11:31 CK-MB (CK-2) Rel Index TNR 01/27/19 11:31 < 0.010 ng/mL (0.00-0.029) 01/27/19 13:17 NT-Pro-B Natriuret Pep TNR 01/27/19 11:31 7.9 g/dL (6.3-8.2) 01/27/19 11:31 4.4 g/dL (3.9-5) 01/27/19 11:31 1.3 % 01/27/19 11:31 TSH 2.020 mlU/mL (0.270-4.200) 01/27/19 13:17 Free T4 1.01 ng/dL (0.76-1.46) 01/27/19 13:17 Colorless (Yellow) 01/27/19 11:25 Clear (Clear) 01/27/19 11:25 7.0 (5.0-7.0) 01/27/19 11:25 Ur Specific [place] 1.003 (1.003-1.030) 01/27/19 11:25 <15 mg/dl mg/dL (Negative) 01/27/19 11:25 Neg mg/dL (Negative) 01/27/19 11:25 Neg mg/dL (Negative) 01/27/19 11:25 Neg (Negative) 01/27/19 11:25 Neg (Negative) 01/27/19 11:25 Neg (Negative) 01/27/19 11:25 < 2.0 mg/dL (<2.0) 01/27/19 11:25 Ur Leukocyte Esterase Neg (Negative) 01/27/19 11:25 < 1.0 /HPF (0.0-6.0) 01/27/19 11:25 < 1.0 /HPF (0.0-6.0) 01/27/19 11:25 Active Medications - Current Medications Current Medications: Generic Name Dose Route Start Last Admin Trade Name Freq PRN Reason Stop Dose Admin Acetaminophen 650 mg 01/27/19 12:40 Tylenol PO Q4H PRN Pain MILD(1-3)/Fever >100.5/WOOD Albuterol 2.5 mg 01/27/19 12:40 Proventil IH Q4HRT PRN Shortness Of Breath Buspirone HCl 10 mg 01/27/19 13:13 01/28/19 15:48 Buspar PO 10 mg TID PRN Administration Anxiety Enoxaparin Sodium 40 mg 01/27/19 22:00 01/28/19 21:12 Lovenox SUB-Q 40 mg QDAY@2200 SHAMAR Administration Sodium Chloride 1,000 mls @ 75 mls/hr 01/27/19 13:00 01/28/19 22:50 Nacl 0.45% 1000 Ml IV 75 mls/hr DIRECT SHAMAR Administration Lorazepam 0.5 mg 01/28/19 17:22 01/29/19 10:38 Ativan PO 0.5 mg Q4H PRN Administration Agitation Ondansetron HCl 4 mg 01/27/19 12:40 Zofran IV Q8H PRN Nausea And Vomiting Sodium Chloride 10 ml 01/27/19 22:00 01/29/19 10:38 Sodium Chloride Flush Syringe 10 Ml IV 10 ml BID SHAMAR Administration Sodium Chloride 10 ml 01/27/19 12:40 Sodium Chloride Flush Syringe 10 Ml IV PRN PRN LINE FLUSH
[2019-01-29] MEDS: LOVENOX SUB-Q SCH (22:04)
[2019-01-30] MEDS: NACL 0.45% 1000 ML 1,000 ML IV SCH (01:11)
[2019-01-30] MEDS ORDERED: LEXISCAN IV ONE ×2 (07:15→07:29)
--- NOTE | 2019-01-30 10:21 | Discharge Summary ---
Providers - Providers Date of Admission: 01/27/19 12:40 Attending physician: RUPERT JOHNS MD 01/27/19 12:42 Consult to Physician [CONS] Routine Comment: Consulting Provider: RICCARDO BORGES Physician Instructions: Reason For Exam: confusion 01/28/19 14:30 Consult to Cardiology [CONS] Routine Consulting Provider: NORM WILSON Reason For Exam: chf/presyncope 01/28/19 17:22 Consult to Mental Health [CONS] Routine Reason For Exam: behavioral disturbance Place consult to:: [facility] Notified:: PSYCH Phone number called:: [phone] Was contact made?: Yes If yes, spoke with:: REENA Time called:: 08:22 Comment:: COMPLETED - BUNN Primary care physician: KIRSTIN LAWRENCE Hospitalization Condition: Stable Hospital course: 38-year-old man with history of anxiety disorder and enlarged cardiac septum who presents to the hospital with chest pain, feelings of dizziness and headache. He stated that these headaches and dizziness and issues remembering things occurred after trauma. Imaging reviewed, which included V/Q scan, MRI brain, MRA head, chest x-ray which were all negative Postconcussive syndrome Neurology input appreciated, should follow-up in headache clinic if does not improve, patient is recommended to take it easy, get lots of rest and stand up slowly Anxiety/ PTSD ativan was given prn, cont buspar Chest pain due to anxiety/panic/costochondritis Cardiology managed this symptom. The patient went on to have a stress test which was neg DVT prophylaxis; Lovenox Disposition: DC-01 TO HOME OR SELFCARE Time spent for discharge: 35 minutes Core Measure Documentation - Palliative Care Palliative Care/ Comfort Measures: Not Applicable - Core Measures Any of the following diagnoses?: none Exam - Constitutional Vitals: Temp Pulse Resp BP Pulse Ox 98.3 F 236 H 18 128/76 86 01/30/19 08:26 01/30/19 08:26 01/30/19 08:26 01/30/19 08:26 01/30/19 08:26 General appearance: Present: no acute distress, well-nourished - EENT Eyes: Present: PERRL ENT: hearing intact, clear oral mucosa - Neck Neck: Present: supple, normal ROM - Respiratory Respiratory effort: normal Respiratory: bilateral: CTA - Cardiovascular Heart Sounds: Present: S1 & S2. Absent: rub, click - Extremities Extremities: pulses symmetrical, No edema Peripheral Pulses: within normal limits - Abdominal General gastrointestinal: Present: soft, non-tender, non-distended, normal bowel sounds Male genitourinary: Present: normal - Integumentary Integumentary: Present: clear, warm, dry - Musculoskeletal Musculoskeletal: gait normal, strength equal bilaterally - Psychiatric Psychiatric: appropriate mood/affect, intact judgment & insight - Neurologic Neurologic: CNII-XII intact, moves all extremities Plan Follow up with: INOCENCIA VEGA MD [Referring] - 3-5 Days Prescriptions: LORazepam [Ativan] 0.5 mg PO Q4H PRN #14 tablet PRN Reason: Agitation Buspar 10 mg PO TID PRN #90 PRN Reason: Anxiety
[2019-01-30 12:11] VITALS: BP 147/87
[2019-01-30] MEDS: ATIVAN PO PRN (12:17)
[2019-01-30] MEDS: SODIUM CHLORIDE FLUSH SYRINGE 10 ML IV SCH (12:25)
--- NOTE | 2019-01-30 14:13 | Progress Note ---
Assessment and Plan - Patient Problems (1) Chest pain Current Visit: Yes Status: Acute Qualifiers: Chest pain type: unspecified Qualified Code(s): R07.9 - Chest pain, unspecified Plan to address problem: The patient's cardiac testing is reviewed. Echocardiogram shows normal left ventricular chamber size, normal wall thickness including normal septal wall thickness, normal left ventricular systolic ejec tion fraction 55-60%. No significant valvular lesions. He underwent an exercise thallium stress test during which he exercised for 12 minutes of a Gerald protocol, completing stage IV and achieving 13 METS. There was no chest pain. At peak exercise, there was borderline ST segment depression, which resolved promptly on cessation of exercise. There were no ST changes in recovery. Thallium images showed normal perfusion. The patient is stable for cardiac discharge, recommended to follow-up with his primary calliope player Dr. Barnes in 3-5 days. Subjective Date of service: 01/30/19 Interval history: The patient's cardiac testing is reviewed. Echocardiogram shows normal left ventricular chamber size, normal wall thickness including normal septal wall thickness, normal left ventricular systolic ejection fraction 55-60%. No significant valvular lesions. He underwent an exercise thallium stress test during which he exercised for 12 minutes of a Gerald protocol, completing stage IV and achieving 13 METS. There was no chest pain. At peak exercise, there was borderline ST segment depression, which resolved promptly on cessation of exercise. There were no ST changes in recovery. Thallium images showed normal perfusion. The patient is stable for cardiac discharge, recommended to follow-up with his primary calliope player Dr. Barnes in 3-5 days. Objective Vital Signs Temp Pulse Resp BP BP Pulse Ox 01/30/19 11:05 147/87 01/30/19 11:04 157/85 01/30/19 11:03 124/82 01/30/19 10:00 57 L 01/30/19 09:24 133/76 01/30/19 08:26 98.3 F 236 H 18 128/76 86 01/30/19 05:30 97.6 F 01/30/19 05:28 57 L 18 100/61 96 01/29/19 23:41 97.5 F L 50 L 20 116/56 98 01/29/19 20:39 97.8 F 01/29/19 20:38 53 L 20 135/73 95 01/29/19 19:33 59 L 01/29/19 17:31 97.5 F L 54 L 18 126/78 99 - Physical Examination General: Appears Well, No Apparent Distress HEENT: Positive: PERRL Neck: Positive: neck supple Cardiac: Positive: Reg Rate and Rhythm Lungs: Positive: clear to auscultation Neuro: Positive: Grossly Intact Abdomen: Positive: Soft, Active Bowel Sounds Skin: Positive: Clear Extremities: Absent: edema
--- NOTE | 2019-01-31 12:18 | Treadmill Report ---
THALLIUM STRESS TEST LEFT VENTRICLE: Left ventricular chamber size is within normal spread. Perfusion study demonstrates homogeneous uptake of the tracer in all segments, no significant perfusion defects identified. Gated analysis demonstrates normal left ventricular systolic function, ejection fraction of 61%. CONCLUSION: Normal myocardial perfusion study. JOB# [id number] CA/NTS
== END 2019-01-30 16:45 | disposition home or self-care (01) | DRG 205 ==
LOC: ED 09:29 → 4A 12:40
PROVIDERS: ADMIT Internal Medicine; ATTEND Internal Medicine
DX: M94.0 Chondrocostal junction syndrome [Tietze] (principal); I50.31 Acute diastolic (congestive) heart failure; I11.0 Hypertensive heart disease with heart failure; F41.9 Anxiety disorder, unspecified; F07.81 Postconcussional syndrome; M54.81 Occipital neuralgia; F43.10 Post-traumatic stress disorder, unspecified; X58.XXXA Exposure to other specified factors, initial encounter; Z82.49 Family history of ischemic heart disease and other diseases of the circulatory system; Y93.89 Activity, other specified; Y92.89 Other specified places as the place of occurrence of the external cause; Y99.8 Other external cause status
CPT/HCPCS: 36415; 70546; 70553; 71045; 78452; 78582; 80048; 80076; 81001; 82553; 83735; 84439; 84443; 84484; 85025; 85379; 85610; 85730; 93005; 93010; 93017; 93306; 96372; G0378; A9502; A9540; A9558; A9577; J1650; J2785; J7030